=== PATIENT | male | born 1995 | race Caucasian/White ===

== ENCOUNTER 2020-08-23 18:04 | Emergency (ER) | payer SELFPAY ==
[~2020-08-23] VITALS: Ht 180.3 cm; Wt 90.9 kg
[2020-08-23] MEDS ORDERED: NEURONTIN300 MG/CAP PO (20:12)
[2020-08-23 21:39] VITALS: BP 124/78; PULSE 84; TEMP 98.9
== END 2020-08-23 21:38 | disposition home or self-care (01) ==
LOC: COL.ER 18:04
DX: S52.122A Displaced fracture of head of left radius, initial encounter for closed fracture (principal); F17.200 Nicotine dependence, unspecified, uncomplicated; V00.848A Other accident with standing micro-mobility pedestrian conveyance, initial encounter; Y92.410 Unspecified street and highway as the place of occurrence of the external cause

== ENCOUNTER 2020-10-27 10:04 | Emergency (ER) | payer SELFPAY ==
[~2020-10-27] VITALS: Ht 180.3 cm; Wt 63.6 kg
[~2020-10-27 10:04] MED LIST: NEURONTIN300 MG/CAP PO
[2020-10-27 10:12] VITALS: TEMP 99.1
[2020-10-27 10:59] LABS: STREP SCREEN NEGATIVE
[2020-10-27] MEDS ORDERED: MAGIC MOUTH PO (11:46)
[2020-10-27] MEDS ORDERED: AMOXICILLIN 8751 TAB PO (11:46)
[2020-10-27 12:04] VITALS: BP 125/75; PULSE 85
== END 2020-10-27 12:04 | disposition home or self-care (01) ==
LOC: COL.ER 10:04
PROVIDERS: Nurse Practitioner Primary Care
DX: J03.90 Acute tonsillitis, unspecified (principal); F17.210 Nicotine dependence, cigarettes, uncomplicated

== ENCOUNTER 2020-10-29 16:40 | Emergency (ER) | payer SELFPAY ==
[~2020-10-29] VITALS: Ht 180.3 cm; Wt 92.7 kg
[~2020-10-29 16:40] MED LIST changes: +AMOXICILLIN 8751 TAB PO; +MAGIC MOUTH PO
[2020-10-29 16:46] VITALS: TEMP 99.3
[2020-10-29 18:12] VITALS: BP 137/82; PULSE 92
[2020-10-29] MEDS ORDERED: ROXICODONE 55 MG/TAB PO (18:21)
[2020-10-29] MEDS ORDERED: AMOXICILLIN 8751 TAB PO (18:21)
[2020-10-29] MEDS ORDERED: MOTRIN 400400 MG/TAB PO (18:21)
== END 2020-10-29 18:30 | disposition home or self-care (01) ==
LOC: COL.ER 16:40
DX: J02.0 Streptococcal pharyngitis (principal); K12.0 Recurrent oral aphthae; Z79.2 Long term (current) use of antibiotics
CPT/HCPCS: J1100; J1885

== ENCOUNTER 2021-02-01 19:40 | Emergency (ER) | payer SELFPAY ==
[~2021-02-01] VITALS: Ht 180.3 cm; Wt 89.1 kg
[~2021-02-01 19:40] MED LIST changes: +MOTRIN 400400 MG/TAB PO; +ROXICODONE 55 MG/TAB PO
[2021-02-01 19:53] VITALS: TEMP 98
[2021-02-01 20:12] LABS: COLLECTION METHOD CLEAN CATCH
[2021-02-01 20:40] LABS: PH 8 (5-8); SQUAMOUS EPITHELIAL None Seen /hpf; URINE APPEARANCE Hazy; URINE BACTERIA None Seen /hpf; URINE BILIRUBIN Negative (NEGATIVE); URINE BLOOD Negative (NEGATIVE); URINE COLOR Yellow; URINE GLUCOSE Negative (NEGATIVE); URINE KETONE Negative (NEGATIVE); URINE LEUKOCYTE ESTERASE Negative (NEGATIVE); URINE NITRATE Negative (NEGATIVE); URINE PROTEIN(semi-quant) Negative (NEGATIVE); URINE RBC 0-2 /hpf; URINE UROBILINOGEN Negative (NEGATIVE)
[2021-02-01] MEDS ORDERED: ROBAXIN 75750 MG/TAB PO (21:38)
[2021-02-01] MEDS ORDERED: NORCO 325 MG-51 TAB PO (21:38)
[2021-02-01 21:55] VITALS: BP 124/78; PULSE 95
== END 2021-02-01 21:55 | disposition home or self-care (01) ==
LOC: COL.ER 19:40
PROVIDERS: Emergency Medicine
DX: M54.5 Low back pain (principal); F17.210 Nicotine dependence, cigarettes, uncomplicated
CPT/HCPCS: J1885

== ENCOUNTER 2021-02-23 16:25 | Emergency (ER) | payer BC ==
[~2021-02-23] VITALS: Ht 180.3 cm; Wt 85.9 kg
[~2021-02-23 16:25] MED LIST changes: +NORCO 325 MG-51 TAB PO; +ROBAXIN 75750 MG/TAB PO
[2021-02-23 16:41] VITALS: TEMP 98.8
[2021-02-23 18:25] LABS: BASO # 0.1 (0.0-0.2); BASO % 0.8 % (0.0-2.0); EOS # 0.2 (0.0-0.7); GRAN # 6.4 (1.4-6.5); GRAN % 70.2 % (42.2-75.2); HEMATOCRIT 45.5 % (42.0-52.0); HEMOGLOBIN 15.2 g/dl (13.5-18.0); LYMPH # 1.9 (1.2-3.4); LYMPH % 21.4 % (20.0-51.0); MEAN CELL VOLUME 90 fl (80.0-100.0); MEAN CORPUSCULAR HEMOGLOBIN 30 pg (27.0-31.0); MEAN CORPUSCULAR HGB CONC 33 g/dl (33.0-37.0); MEAN PLATELET VOLUME 10.1 fl (7.4-10.4); MONO # 0.5 (0.1-0.6); MONO % 5.2 % (1.7-9.3); PLATELET COUNT 296 K/mm3 (130-400); RED BLOOD COUNT 5.08 M/mm3 (4.20-5.60); REDCELL DISTRIBUTION WIDTH-CV 11.8 % (11.5-14.5)
[2021-02-23 18:32] LABS: ALBUMIN 4.6 gm/dL (3.5-5.0); BILIRUBIN,TOTAL 0.4 mg/dL (0.0-1.0); CALCIUM 9.8 mg/dL (8.4-10.2); CREATININE, serum 0.89 (0.66-1.25); TOTAL PROTEIN 7.8 gm/dL (6.4-8.2)
[2021-02-23 19:45] VITALS: BP 137/79; PULSE 77
== END 2021-02-23 19:45 | disposition home or self-care (01) ==
LOC: COL.ER 16:25
PROVIDERS: Nurse Practitioner Primary Care
DX: F07.81 Postconcussional syndrome (principal)

== ENCOUNTER 2021-04-07 21:49 | Emergency (ER) | payer BC ==
[~2021-04-07] VITALS: Ht 180.3 cm; Wt 83.6 kg
[2021-04-07 21:55] VITALS: TEMP 97.2
[2021-04-07] MEDS ORDERED: NAPROSYN500 MG PO (22:56)
[2021-04-07 23:01] VITALS: BP 115/76; PULSE 85
== END 2021-04-07 23:04 | disposition home or self-care (01) ==
LOC: COL.ER 21:49
DX: M77.12 Lateral epicondylitis, left elbow (principal); F17.290 Nicotine dependence, other tobacco product, uncomplicated

== ENCOUNTER 2021-04-22 09:58 | Emergency (ER) | payer BC ==
[~2021-04-22] VITALS: Ht 180.3 cm; Wt 85.5 kg
[~2021-04-22 09:58] MED LIST changes: +NAPROSYN500 MG PO
[2021-04-22 10:02] VITALS: TEMP 98.9
[2021-04-22 10:45] VITALS: BP 130/77; PULSE 80
== END 2021-04-22 10:45 | disposition home or self-care (01) ==
LOC: COL.ER 09:58
DX: M25.522 Pain in left elbow (principal); G89.29 Other chronic pain

== ENCOUNTER 2021-04-24 17:30 | Emergency (ER) | payer BC ==
[~2021-04-24] VITALS: Ht 180.3 cm; Wt 81.8 kg
[2021-04-24 17:39] VITALS: BP 123/87; TEMP 98.7
[2021-04-24] MEDS ORDERED: AMOXICILLIN 50500 MG PO (18:43)
[2021-04-24 19:14] VITALS: PULSE 88
== END 2021-04-24 19:15 | disposition home or self-care (01) ==
LOC: COL.ER 17:30
DX: K02.9 Dental caries, unspecified (principal); F17.200 Nicotine dependence, unspecified, uncomplicated

== ENCOUNTER 2021-08-24 14:22 | Emergency (ER) | payer BC ==
[~2021-08-24] VITALS: Ht 180.3 cm; Wt 84.1 kg
[~2021-08-24 14:22] MED LIST changes: +AMOXICILLIN 50500 MG PO
[2021-08-24 14:48] VITALS: TEMP 98.5
[2021-08-24 14:57] LABS: COLLECTION METHOD CLEAN CATCH
[2021-08-24 14:59] LABS: BASO # 0.1 K/mm3 (0.0-0.2); BASO % 0.7 % (0.0-2.0); EOS # 0.3 K/mm3 (0.0-0.7); EOS % 3.1 % (0-4.0); GRAN # 7.1 K/mm3 (1.4-6.5); GRAN % 69.1 % (42.2-75.2); HEMATOCRIT 44.8 % (42.0-52.0); HEMOGLOBIN 15.1 g/dl (13.5-18.0); LYMPH # 2.1 K/mm3 (1.2-3.4); LYMPH % 20.8 % (20.0-51.0); MEAN CELL VOLUME 89 fl (80.0-100.0); MEAN CORPUSCULAR HEMOGLOBIN 30 pg (27.0-31.0); MEAN CORPUSCULAR HGB CONC 34 g/dl (33.0-37.0); MEAN PLATELET VOLUME 9.8 fl (7.4-10.4); MONO # 0.6 K/mm3 (0.1-0.6); MONO % 5.8 % (1.7-9.3); PLATELET COUNT 262 K/mm3 (130-400); RED BLOOD COUNT 5.05 M/mm3 (4.20-5.60); REDCELL DISTRIBUTION WIDTH-CV 12.3 % (11.5-14.5)
[2021-08-24] MEDS ORDERED: VOLTAREN 75 DR75 MG PO (15:05)
[2021-08-24 15:06] LABS: PH 8 (5-8); SQUAMOUS EPITHELIAL None Seen /hpf; URINE APPEARANCE Hazy; URINE BACTERIA None Seen /hpf; URINE BILIRUBIN Negative (NEGATIVE); URINE BLOOD Negative (NEGATIVE); URINE COLOR Yellow; URINE GLUCOSE Negative (NEGATIVE); URINE KETONE Negative (NEGATIVE); URINE LEUKOCYTE ESTERASE Negative (NEGATIVE); URINE NITRATE Negative (NEGATIVE); URINE PROTEIN(semi-quant) Negative (NEGATIVE); URINE RBC 0-2 /hpf; URINE UROBILINOGEN Negative (NEGATIVE)
[2021-08-24 15:23] LABS: ALBUMIN 4.6 gm/dL (3.5-5.0); BILIRUBIN,TOTAL 0.5 mg/dL (0.2-1.2); C-REACTIVE PROTEIN 0.31 mg/dL (0.00-0.50); CREATININE, serum 1.1 mg/dL (0.72-1.25); POTASSIUM 4.4 mmol/L (3.5-4.5); TOTAL PROTEIN 7.9 gm/dL (6.2-8.1)
[2021-08-24] MEDS ORDERED: BENTYL 10MG10 MG/CAP PO (15:53)
[2021-08-24 16:42] VITALS: BP 128/76; PULSE 60
== END 2021-08-24 16:43 | disposition home or self-care (01) ==
LOC: COL.ER 14:22
PROVIDERS: Emergency Medicine
DX: R19.7 Diarrhea, unspecified (principal); J45.909 Unspecified asthma, uncomplicated; F17.210 Nicotine dependence, cigarettes, uncomplicated
CPT/HCPCS: J2405; J7030; Q9967

== ENCOUNTER 2022-03-28 15:58 | Emergency (ER) | payer BC ==
[~2022-03-28] VITALS: Ht 180.3 cm; Wt 63.6 kg
[~2022-03-28 15:58] MED LIST changes: +BENTYL 10MG10 MG/CAP PO; +VOLTAREN 75 DR75 MG PO
[2022-03-28 16:10] VITALS: TEMP 98.5
[2022-03-28 17:40] VITALS: BP 115/77; PULSE 95
[2022-03-28] MEDS ORDERED: PREDNISONE20 MG PO (18:17)
== END 2022-03-28 17:40 | disposition home or self-care (01) ==
LOC: COL.ER 15:58
DX: J45.901 Unspecified asthma with (acute) exacerbation (principal); F17.290 Nicotine dependence, other tobacco product, uncomplicated; Z20.822 Contact with and (suspected) exposure to COVID-19; Z28.310 Unvaccinated for COVID-19
CPT/HCPCS: J7512

== ENCOUNTER 2022-06-20 10:11 | Emergency (ER) | payer SELFPAY ==
[~2022-06-20] VITALS: Ht 180.3 cm; Wt 85.0 kg
[~2022-06-20 10:11] MED LIST changes: +PREDNISONE20 MG PO
[2022-06-20 10:34] VITALS: TEMP 98.2
[2022-06-20] MEDS ORDERED: NORCO 325 MG-51 TAB PO (12:01)
[2022-06-20 12:23] VITALS: BP 132/84; PULSE 70
== END 2022-06-20 12:23 | disposition home or self-care (01) ==
LOC: COL.ER 10:11
DX: S42.402A Unspecified fracture of lower end of left humerus, initial encounter for closed fracture (principal); Z28.310 Unvaccinated for COVID-19; W18.30XA Fall on same level, unspecified, initial encounter

== ENCOUNTER 2023-10-23 08:59 | Emergency (ER) | payer SELFPAY ==
[~2023-10-23] VITALS: Ht 180.3 cm; Wt 88.2 kg
[~2023-10-23 08:59] MED LIST changes: +PROTONIX 40MG T40 MG PO; +ZITHROMAX Z PA250 MG PO
[2023-10-23] MEDS ORDERED: AMOXICILLIN 8751 TAB PO (09:21)
[2023-10-23] MEDS ORDERED: NORCO 325 MG-51 TAB PO (09:21)
[2023-10-23 09:47] VITALS: BP 129/95; PULSE 108; TEMP 98.1
== END 2023-10-23 09:47 | disposition home or self-care (01) ==
LOC: COL.ER 08:59
DX: K04.7 Periapical abscess without sinus (principal); F17.210 Nicotine dependence, cigarettes, uncomplicated; F17.290 Nicotine dependence, other tobacco product, uncomplicated
CPT/HCPCS: J8540